=== PATIENT | male | born 1965 | race Caucasian/White ===

== ENCOUNTER 2023-01-21 18:48 | Emergency (ER) | payer BC ==
[2023-01-21 19:02] VITALS: BP 141/95; PULSE 71; RESP 18; TEMP 98; BMI 24.3
[2023-01-21] MEDS ORDERED: KETOROLAC TROMETHAMINE 30 MG/1 ML VIAL IVPUSH ONE (19:15)
[2023-01-21] MEDS ORDERED: SODIUM CHLORIDE 1,000 ML IV ONE (19:15)
[2023-01-21] MEDS ORDERED: ONDANSETRON 4 MG/2 ML VIAL IVPUSH ONE (19:15)
[2023-01-21] MEDS ORDERED: KETOROLAC TROMETHAMINE 30 MG/1 ML VIAL ONE (19:30)
[2023-01-21] MEDS ORDERED: ONDANSETRON 4 MG/2 ML VIAL ONE (19:30)
[2023-01-21 19:43] LABS: HEMATOCRIT 42.4 % (35.4-49); HEMOGLOBIN 14.5 G/dL (11.7-16.9); MCH 28.9 pg (25.7-33.7); MCHC 34.2 g/dl (32.0-35.9); MEAN CELL VOLUME 84.4 fl (80-96); MEAN PLT VOLUME 6.9 fl (7.5-11.1); PLATELET COUNT 258.4 10^3/uL (134-434); RBC 5.02 10^6/uL (4.00-5.60)
[2023-01-21 19:56] LABS: ALBUMIN 4.7 g/dl (3.4-5.0); BILIRUBIN,TOTAL 1.1 mg/dl (0.2-1); BLOOD UREA NITROGEN 15.7 mg/dl (7-18); CALCIUM 9.5 mg/dl (8.5-10.1); POTASSIUM 4.6 mmol/L (3.5-5.1); SGOT/AST 16.5 U/L (15-37); SGPT/ALT 13.6 U/L (7-52)
== END 2023-01-21 21:05 | disposition home or self-care (01) ==
LOC: FER 18:48
PROC: 3E033GC Introduction of Other Therapeutic Substance into Peripheral Vein, Percutaneous Approach (ICD-10-PCS; principal; 2023-01-21)
PROC: 3E033GC Introduction of Other Therapeutic Substance into Peripheral Vein, Percutaneous Approach (ICD-10-PCS; 2023-01-21)
PROC: 3E0337Z Introduction of Electrolytic and Water Balance Substance into Peripheral Vein, Percutaneous Approach (ICD-10-PCS; 2023-01-21)
DX: R10.32 Left lower quadrant pain (principal); K59.00 Constipation, unspecified; R11.0 Nausea
CPT/HCPCS: 36415; 74176-TC; 80053; 85027; 99284-25